=== PATIENT | female | born 1940 | race African-American/Black ===

== ENCOUNTER 2023-06-21 11:56 | Inpatient (IN) | payer OTHER ==
[2023-06-21 12:53] LABS: BASO % 0.2 % (0-2.0); EOS % 1.1 % (0-4.5); HEMATOCRIT 19.3 % (32.4-45.2); LYMPH % 6.5 % (8-40); MCH 28.3 pg (25.7-33.7); MCHC 32.5 g/dl (32.0-36.0); MEAN PLT VOLUME 8.9 fl (7.5-11.1); MONO % 9.5 % (3.8-10.2); NEUT % 82.7 % (42.8-82.8); PLATELET COUNT 222 10^3/uL (134-434); RBC 2.22 M/mm3 (3.60-5.2); RDW 17.7 % (11.6-15.6); WHITE BLOOD COUNT 11.3 K/mm3 (4.0-10.0)
[2023-06-21 12:58] LABS: HEMOGLOBIN 6.3 GM/dL (10.7-15.3)
[2023-06-21 13:01] LABS: INR 1.16 (0.83-1.09); PROTHROMBIN TIME (PATIENT) 13.4 SEC (9.7-13.0)
[2023-06-21 13:04] LABS: ACTIVATED PTT 30.5 SECONDS (25.2-36.5)
[2023-06-21 13:12] LABS: CHLORIDE 102 mmol/L (98-107); POTASSIUM 5.2 mmol/L (3.5-5.1); SODIUM 139 mmol/L (136-145)
[2023-06-21 13:14] LABS: CALCIUM 7.7 mg/dL (8.5-10.1)
[2023-06-21 13:15] LABS: ALBUMIN 1.5 g/dl (3.4-5.0); ANION GAP 12 MMOL/L (8-16); CO2 26 mmol/L (21-32); GLUCOSE,RANDOM 130 mg/dL (74-106)
[2023-06-21 13:18] LABS: CREATININE 5.1 mg/dL (0.55-1.3); SGOT/AST 97 U/L (15-37); SGPT/ALT 81 U/L (13-61)
[2023-06-21 13:19] LABS: TOT PROT 5.5 g/dl (6.4-8.2)
[2023-06-21 13:20] LABS: BILIRUBIN,TOTAL 0.2 mg/dL (0.2-1)
[2023-06-21 13:22] LABS: ALK PHOS 127 U/L (45-117); BLOOD UREA NITROGEN 144.6 mg/dL (7-18)
[2023-06-21 14:22] LABS: MAGNESIUM 1.8 mg/dL (1.8-2.4)
[2023-06-21 14:25] LABS: PHOSPHOROUS 3.7 mg/dL (2.5-4.9)
[2023-06-21] MEDS ORDERED: FUROSEMIDE 40 MG/4 ML INJECTABLE VIAL IVPUSH ONE (15:48)
[2023-06-21] MEDS ORDERED: FUROSEMIDE 40 MG/4 ML INJECTABLE VIAL ONE (15:54)
[2023-06-21 22:29] LABS: HEMATOCRIT 22.7 % (32.4-45.2); HEMOGLOBIN 7.7 GM/dL (10.7-15.3); MCH 29.1 pg (25.7-33.7); MEAN CELL VOLUME 85.5 fl (80-96); MEAN PLT VOLUME 8.7 fl (7.5-11.1); PLATELET COUNT 194 10^3/uL (134-434); RBC 2.65 M/mm3 (3.60-5.2); RDW 16.5 % (11.6-15.6); WHITE BLOOD COUNT 10.9 K/mm3 (4.0-10.0)
[2023-06-22] MEDS: SODIUM BICARBONATE 650 MG TABLET PEG SCH ×3 (00:59→21:45)
[2023-06-22] MEDS: CARVEDILOL 3.125 MG TABLET (FP) GT SCH ×3 (00:59→21:45)
[2023-06-22] MEDS: ATORVASTATIN CA 80 MG TABLET (FP) NGT SCH ×2 (00:59→21:45)
[2023-06-22] MEDS: LEVOTHYROXINE NA 100 MCG TABLET (FP) GT SCH (06:06)
[2023-06-22] MEDS: SEVELAMER CARBONATE 800 MG TAB (FP) PO SCH ×4 (07:00→18:00)
[2023-06-22] MEDS: SODIUM ZIRCONIUM CYCLOSILICATE (LOKELMA) 5 GM PACKET PO SCH ×2 (07:00→10:08)
[2023-06-22 07:32] LABS: BASO % 0.6 % (0-2.0); EOS % 1.2 % (0-4.5); HEMATOCRIT 20.8 % (32.4-45.2); LYMPH % 9.1 % (8-40); MCHC 33.4 g/dl (32.0-36.0); MEAN CELL VOLUME 86.9 fl (80-96); MEAN PLT VOLUME 9.4 fl (7.5-11.1); MONO % 5.5 % (3.8-10.2); NEUT % 83.6 % (42.8-82.8); PLATELET COUNT 200 10^3/uL (134-434); RBC 2.39 M/mm3 (3.60-5.2); RDW 16.8 % (11.6-15.6); WHITE BLOOD COUNT 9.5 K/mm3 (4.0-10.0)
[2023-06-22 07:35] LABS: HEMOGLOBIN 6.9 GM/dL (10.7-15.3)
[2023-06-22 07:46] LABS: CHLORIDE 103 mmol/L (98-107); POTASSIUM 5.4 mmol/L (3.5-5.1)
[2023-06-22 07:51] LABS: ALBUMIN 1.3 g/dl (3.4-5.0); CALCIUM 7.4 mg/dL (8.5-10.1); CO2 23 mmol/L (21-32); GLUCOSE,RANDOM 97 mg/dL (74-106); MAGNESIUM 1.8 mg/dL (1.8-2.4)
[2023-06-22 07:54] LABS: CREATININE 5.1 mg/dL (0.55-1.3); SGOT/AST 107 U/L (15-37)
[2023-06-22 07:55] LABS: SGPT/ALT 85 U/L (13-61)
[2023-06-22 07:56] LABS: BILIRUBIN,TOTAL 0.3 mg/dL (0.2-1); TOT PROT 4.9 g/dl (6.4-8.2)
[2023-06-22 07:57] LABS: ALK PHOS 104 U/L (45-117)
[2023-06-22 08:07] LABS: ANION GAP 12 MMOL/L (8-16); BLOOD UREA NITROGEN 133.2 mg/dL (7-18); SODIUM 138 mmol/L (136-145)
[2023-06-22] MEDS ORDERED: CEFTRIAXONE IV SCH (10:00)
[2023-06-22] MEDS ORDERED: [UNRECOGNIZED DRUG - OTHER] IV SCH (10:00)
[2023-06-22] MEDS: PANTOPRAZOLE SODIUM 40 MG VIAL IVPUSH SCH ×2 (10:11→21:45)
[2023-06-22] MEDS: ZINC SULFATE 220 MG CAPSULE (FP) GT SCH (10:11)
[2023-06-22] MEDS: AMIODARONE HCL 200 MG TABLET NGT SCH (10:12)
[2023-06-22] MEDS: CEFTRIAXONE 1 GM in DEXTROSE 5%-WATER - 50 ML IVPB SCH (10:12)
[2023-06-22] MEDS: COLLAGENASE CLOSTRIDIUM HIST. 30 GRAMS TUBE TP SCH (12:40)
[2023-06-22 21:57] LABS: HEMATOCRIT 25.6 % (32.4-45.2); HEMOGLOBIN 8.7 GM/dL (10.7-15.3); MCH 28.5 pg (25.7-33.7); MCHC 34.1 g/dl (32.0-36.0); MEAN CELL VOLUME 83.8 fl (80-96); MEAN PLT VOLUME 8.7 fl (7.5-11.1); PLATELET COUNT 194 10^3/uL (134-434); RBC 3.06 M/mm3 (3.60-5.2); RDW 15.7 % (11.6-15.6); WHITE BLOOD COUNT 8.7 K/mm3 (4.0-10.0)
[2023-06-23] MEDS: LEVOTHYROXINE NA 100 MCG TABLET (FP) GT SCH (06:00)
[2023-06-23 08:11] LABS: BASO % 0.6 % (0-2.0); EOS % 2.8 % (0-4.5); HEMATOCRIT 28.2 % (32.4-45.2); HEMOGLOBIN 9.4 GM/dL (10.7-15.3); LYMPH % 10.4 % (8-40); MCH 28.5 pg (25.7-33.7); MCHC 33.2 g/dl (32.0-36.0); MEAN CELL VOLUME 85.9 fl (80-96); MEAN PLT VOLUME 9.4 fl (7.5-11.1); MONO % 8.4 % (3.8-10.2); NEUT % 77.8 % (42.8-82.8); PLATELET COUNT 221 10^3/uL (134-434); RBC 3.28 M/mm3 (3.60-5.2); RDW 16.3 % (11.6-15.6); WHITE BLOOD COUNT 8.5 K/mm3 (4.0-10.0)
[2023-06-23 08:30] LABS: CHLORIDE 102 mmol/L (98-107); POTASSIUM 5.1 mmol/L (3.5-5.1); SODIUM 138 mmol/L (136-145)
[2023-06-23 08:36] LABS: CALCIUM 7.5 mg/dL (8.5-10.1)
[2023-06-23 08:37] LABS: ALBUMIN 1.5 g/dl (3.4-5.0); ANION GAP 11 MMOL/L (8-16); CO2 24 mmol/L (21-32); GLUCOSE,RANDOM 103 mg/dL (74-106)
[2023-06-23 08:38] LABS: SGOT/AST 131 U/L (15-37); SGPT/ALT 151 U/L (13-61)
[2023-06-23 08:39] LABS: BILIRUBIN,TOTAL 0.3 mg/dL (0.2-1)
[2023-06-23 08:41] LABS: MAGNESIUM 1.9 mg/dL (1.8-2.4)
[2023-06-23 08:44] LABS: ALK PHOS 161 U/L (45-117); BLOOD UREA NITROGEN 135.5 mg/dL (7-18)
[2023-06-23] MEDS: AMIODARONE HCL 200 MG TABLET NGT SCH (08:59)
[2023-06-23] MEDS: SODIUM BICARBONATE 650 MG TABLET PEG SCH ×2 (08:59→21:08)
[2023-06-23] MEDS: PANTOPRAZOLE SODIUM 40 MG VIAL IVPUSH SCH ×2 (08:59→21:08)
[2023-06-23] MEDS: CARVEDILOL 3.125 MG TABLET (FP) GT SCH ×2 (08:59→21:08)
[2023-06-23] MEDS: ZINC SULFATE 220 MG CAPSULE (FP) GT SCH (08:59)
[2023-06-23] MEDS: QUEtiapine FUMARATE 25 MG TABLET GT SCH (09:00)
[2023-06-23] MEDS: CEFTRIAXONE 1 GM in DEXTROSE 5%-WATER - 50 ML IVPB SCH (09:00)
[2023-06-23] MEDS: SEVELAMER CARBONATE 800 MG TAB (FP) PO SCH ×2 (09:00→09:06)
[2023-06-23] MEDS: SEVELAMER CARBONATE 0.8 GM POWDER PACKET GT SCH ×2 (09:17→13:38)
[2023-06-23] MEDS: SODIUM ZIRCONIUM CYCLOSILICATE (LOKELMA) 5 GM PACKET PO SCH (11:49)
[2023-06-23] MEDS: COLLAGENASE CLOSTRIDIUM HIST. 30 GRAMS TUBE TP SCH (11:50)
[2023-06-24] MEDS: LEVOTHYROXINE NA 100 MCG TABLET (FP) GT SCH (06:06)
[2023-06-24] MEDS: SODIUM ZIRCONIUM CYCLOSILICATE (LOKELMA) 5 GM PACKET PO SCH (09:00)
[2023-06-24] MEDS: SODIUM BICARBONATE 650 MG TABLET PEG SCH ×2 (09:00→21:25)
[2023-06-24] MEDS: SEVELAMER CARBONATE 0.8 GM POWDER PACKET GT SCH ×4 (09:00→17:01)
[2023-06-24] MEDS: CEFTRIAXONE 1 GM in DEXTROSE 5%-WATER - 50 ML IVPB SCH (09:01)
[2023-06-24] MEDS: COLLAGENASE CLOSTRIDIUM HIST. 30 GRAMS TUBE TP SCH (09:01)
[2023-06-24] MEDS: CARVEDILOL 3.125 MG TABLET (FP) GT SCH ×2 (09:01→21:25)
[2023-06-24] MEDS: ZINC SULFATE 220 MG CAPSULE (FP) GT SCH (09:01)
[2023-06-24] MEDS: PANTOPRAZOLE SODIUM 40 MG VIAL IVPUSH SCH ×2 (09:01→21:25)
[2023-06-24 16:32] LABS: BASO % 0.6 % (0-2.0); EOS % 3.6 % (0-4.5); HEMATOCRIT 27.2 % (32.4-45.2); HEMOGLOBIN 9.1 GM/dL (10.7-15.3); LYMPH % 13.2 % (8-40); MCH 28.5 pg (25.7-33.7); MCHC 33.6 g/dl (32.0-36.0); MEAN PLT VOLUME 8.5 fl (7.5-11.1); MONO % 8.9 % (3.8-10.2); NEUT % 73.7 % (42.8-82.8); PLATELET COUNT 221 10^3/uL (134-434); RDW 16.5 % (11.6-15.6); WHITE BLOOD COUNT 7.3 K/mm3 (4.0-10.0)
[2023-06-24 16:38] LABS: INR 1.06 (0.83-1.09); PROTHROMBIN TIME (PATIENT) 12.3 SEC (9.7-13.0)
[2023-06-24 17:18] LABS: ALBUMIN 1.4 g/dl (3.4-5.0); ALK PHOS 156 U/L (45-117); ANION GAP 9 MMOL/L (8-16); BILIRUBIN,TOTAL 0.1 mg/dL (0.2-1); CALCIUM 7.4 mg/dL (8.5-10.1); CHLORIDE 100 mmol/L (98-107); CO2 28 mmol/L (21-32); CREATININE 4.8 mg/dL (0.55-1.3); GLUCOSE,RANDOM 113 mg/dL (74-106); POTASSIUM 4.1 mmol/L (3.5-5.1); SGOT/AST 77 U/L (15-37); SGPT/ALT 110 U/L (13-61); SODIUM 137 mmol/L (136-145)
[2023-06-25] MEDS: SEVELAMER CARBONATE 0.8 GM POWDER PACKET GT SCH ×3 (09:30→17:04)
[2023-06-25] MEDS: PANTOPRAZOLE SODIUM 40 MG VIAL IVPUSH SCH ×2 (10:26→21:25)
[2023-06-25] MEDS: SODIUM ZIRCONIUM CYCLOSILICATE (LOKELMA) 5 GM PACKET PO SCH (10:26)
[2023-06-25] MEDS: CARVEDILOL 3.125 MG TABLET (FP) GT SCH ×2 (10:26→21:25)
[2023-06-25] MEDS: LEVOTHYROXINE NA 100 MCG TABLET (FP) GT SCH (10:26)
[2023-06-25] MEDS: QUEtiapine FUMARATE 25 MG TABLET GT SCH (10:26)
[2023-06-25] MEDS: ZINC SULFATE 220 MG CAPSULE (FP) GT SCH (10:26)
[2023-06-25] MEDS: SODIUM BICARBONATE 650 MG TABLET PEG SCH ×2 (10:26→21:25)
[2023-06-25] MEDS: CEFTRIAXONE 1 GM in DEXTROSE 5%-WATER - 50 ML IVPB SCH (10:27)
[2023-06-25] MEDS: COLLAGENASE CLOSTRIDIUM HIST. 30 GRAMS TUBE TP SCH (10:27)
[2023-06-25 12:09] LABS: HEPATITIS B SURFACE AG MATERN NON-REACTIVE (NONREACTIVE)
[2023-06-25 12:17] VITALS: BMI 28.9
[2023-06-26] MEDS: LEVOTHYROXINE NA 100 MCG TABLET (FP) GT SCH (06:26)
[2023-06-26 06:58] LABS: HEMOGLOBIN 9.9 GM/dL (10.7-15.3); MCH 28.6 pg (25.7-33.7); MEAN CELL VOLUME 86.9 fl (80-96); MEAN PLT VOLUME 9.2 fl (7.5-11.1); PLATELET COUNT 251 10^3/uL (134-434); RBC 3.45 M/mm3 (3.60-5.2); RDW 16.5 % (11.6-15.6); WHITE BLOOD COUNT 8.2 K/mm3 (4.0-10.0)
[2023-06-26 07:25] LABS: POTASSIUM 4.5 mmol/L (3.5-5.1)
[2023-06-26 07:26] LABS: CALCIUM 7.8 mg/dL (8.5-10.1)
[2023-06-26 07:27] LABS: ALBUMIN 1.6 g/dl (3.4-5.0); CO2 23 mmol/L (21-32); GLUCOSE,RANDOM 125 mg/dL (74-106); MAGNESIUM 1.8 mg/dL (1.8-2.4)
[2023-06-26 07:30] LABS: CREATININE 4.9 mg/dL (0.55-1.3); PHOSPHOROUS 3.4 mg/dL (2.5-4.9); SGOT/AST 71 U/L (15-37); SGPT/ALT 86 U/L (13-61)
[2023-06-26 07:32] LABS: TOT PROT 5.3 g/dl (6.4-8.2)
[2023-06-26 07:33] LABS: ALK PHOS 165 U/L (45-117)
[2023-06-26 07:35] LABS: ANION GAP 12 MMOL/L (8-16); BILIRUBIN,TOTAL 0.2 mg/dL (0.2-1); BLOOD UREA NITROGEN 136.6 mg/dL (7-18); CHLORIDE 102 mmol/L (98-107); SODIUM 137 mmol/L (136-145)
[2023-06-26] MEDS: AMINO ACIDS/PROTEIN HYDROLYS 30 ML LIQUID.PKT PO SCH (09:00)
[2023-06-26] MEDS: ZINC SULFATE 220 MG CAPSULE (FP) GT SCH (09:12)
[2023-06-26] MEDS: SODIUM ZIRCONIUM CYCLOSILICATE (LOKELMA) 5 GM PACKET PO SCH (09:12)
[2023-06-26] MEDS: SEVELAMER CARBONATE 0.8 GM POWDER PACKET GT SCH ×3 (09:12→17:53)
[2023-06-26] MEDS: CEFTRIAXONE 1 GM in DEXTROSE 5%-WATER - 50 ML IVPB SCH (09:12)
[2023-06-26] MEDS: CARVEDILOL 3.125 MG TABLET (FP) GT SCH ×2 (09:12→21:22)
[2023-06-26] MEDS: PANTOPRAZOLE SODIUM 40 MG VIAL IVPUSH SCH ×2 (09:13→21:22)
[2023-06-26] MEDS: SODIUM BICARBONATE 650 MG TABLET PEG SCH ×2 (09:13→21:22)
[2023-06-26] MEDS: COLLAGENASE CLOSTRIDIUM HIST. 30 GRAMS TUBE TP SCH (09:14)
[2023-06-26 09:33] LABS: EPI CELLS 15 /uL (0-25.1); HYALINE CASTS 0 /uL (0-3.1); URINE APPEARANCE CLEAR; URINE BACTERIA 1828 /uL (0-1359); URINE BILIRUBIN NEGATIVE (NEGATIVE); URINE COLOR YELLOW; URINE GLUCOSE (UA) NEGATIVE (NEGATIVE); URINE KETONE NEGATIVE (NEGATIVE); URINE LEUK ESTERASE 2+ (NEGATIVE); URINE NITRITE NEGATIVE (NEGATIVE); URINE PROTEIN 1+ (NEGATIVE); URINE RBC 18 /uL (0-23.9); URINE UROBILINOGEN 0.2 mg/dL (0.2-1.0); URINE WBC 507 /uL (0-25.8)
[2023-06-26 10:03] LABS: YEAST MANY (NEGATIVE)
[2023-06-26 21:06] LABS: GLIADIN ANTIBODY IGA 7 units (0-19); GLIADIN ANTIBODY IGG 2 units (0-19); TRANSGLUTAMINASE IGG < 2 U/mL (0-5)
[2023-06-27] MEDS: LEVOTHYROXINE NA 100 MCG TABLET (FP) GT SCH (06:13)
[2023-06-27] MEDS: CEFTRIAXONE 1 GM in DEXTROSE 5%-WATER - 50 ML IVPB SCH (09:05)
[2023-06-27] MEDS: SEVELAMER CARBONATE 0.8 GM POWDER PACKET GT SCH ×3 (09:06→17:16)
[2023-06-27] MEDS: ZINC SULFATE 220 MG CAPSULE (FP) GT SCH (09:06)
[2023-06-27] MEDS: PANTOPRAZOLE SODIUM 40 MG VIAL IVPUSH SCH ×2 (09:06→21:53)
[2023-06-27] MEDS: SODIUM ZIRCONIUM CYCLOSILICATE (LOKELMA) 5 GM PACKET PO SCH (09:06)
[2023-06-27] MEDS: AMINO ACIDS/PROTEIN HYDROLYS 30 ML LIQUID.PKT PO SCH (09:06)
[2023-06-27] MEDS: QUEtiapine FUMARATE 25 MG TABLET GT SCH (09:06)
[2023-06-27] MEDS: SODIUM BICARBONATE 650 MG TABLET PEG SCH ×2 (09:06→21:53)
[2023-06-27] MEDS: CARVEDILOL 3.125 MG TABLET (FP) GT SCH ×2 (09:06→21:54)
[2023-06-27] MEDS: COLLAGENASE CLOSTRIDIUM HIST. 30 GRAMS TUBE TP SCH (09:07)
[2023-06-27 12:02] LABS: BASO % 0.8 % (0-2.0); HEMATOCRIT 27.3 % (32.4-45.2); HEMOGLOBIN 9.2 GM/dL (10.7-15.3); LYMPH % 14.9 % (8-40); MCH 28.6 pg (25.7-33.7); MCHC 33.5 g/dl (32.0-36.0); MEAN CELL VOLUME 85.2 fl (80-96); MEAN PLT VOLUME 8.5 fl (7.5-11.1); MONO % 10.2 % (3.8-10.2); NEUT % 71.1 % (42.8-82.8); PLATELET COUNT 230 10^3/uL (134-434); RDW 16.4 % (11.6-15.6); WHITE BLOOD COUNT 5.9 K/mm3 (4.0-10.0)
[2023-06-27 12:27] LABS: CHLORIDE 101 mmol/L (98-107); POTASSIUM 3.7 mmol/L (3.5-5.1); SODIUM 136 mmol/L (136-145)
[2023-06-27 12:31] LABS: CALCIUM 7.7 mg/dL (8.5-10.1)
[2023-06-27 12:32] LABS: ALBUMIN 1.5 g/dl (3.4-5.0); ANION GAP 10 MMOL/L (8-16); CO2 25 mmol/L (21-32); GLUCOSE,RANDOM 125 mg/dL (74-106); MAGNESIUM 1.9 mg/dL (1.8-2.4)
[2023-06-27 12:35] LABS: CREATININE 4.6 mg/dL (0.55-1.3); SGOT/AST 53 U/L (15-37); SGPT/ALT 74 U/L (13-61)
[2023-06-27 12:37] LABS: BILIRUBIN,TOTAL 0.2 mg/dL (0.2-1); TOT PROT 4.9 g/dl (6.4-8.2)
[2023-06-27 12:38] LABS: ALK PHOS 140 U/L (45-117)
[2023-06-27 12:39] LABS: BLOOD UREA NITROGEN 133.6 mg/dL (7-18)
[2023-06-28] MEDS: LEVOTHYROXINE NA 100 MCG TABLET (FP) GT SCH (06:31)
[2023-06-28] MEDS: oxyCODONE HCL 5 MG TABLET PEG PRN ×2 (06:31→15:07)
[2023-06-28 07:52] LABS: BASO % 0.7 % (0-2.0); EOS % 1.6 % (0-4.5); HEMATOCRIT 25.7 % (32.4-45.2); HEMOGLOBIN 8.4 GM/dL (10.7-15.3); LYMPH % 12.5 % (8-40); MCH 28.5 pg (25.7-33.7); MCHC 32.7 g/dl (32.0-36.0); MEAN CELL VOLUME 87.4 fl (80-96); MEAN PLT VOLUME 9.2 fl (7.5-11.1); MONO % 9.4 % (3.8-10.2); NEUT % 75.8 % (42.8-82.8); PLATELET COUNT 214 10^3/uL (134-434); RBC 2.94 M/mm3 (3.60-5.2); RDW 16.2 % (11.6-15.6); WHITE BLOOD COUNT 7.2 K/mm3 (4.0-10.0)
[2023-06-28 08:05] LABS: CHLORIDE 101 mmol/L (98-107); POTASSIUM 3.7 mmol/L (3.5-5.1); SODIUM 136 mmol/L (136-145)
[2023-06-28 08:10] LABS: CALCIUM 7.7 mg/dL (8.5-10.1)
[2023-06-28 08:11] LABS: ALBUMIN 1.4 g/dl (3.4-5.0); ANION GAP 11 MMOL/L (8-16); CO2 25 mmol/L (21-32); GLUCOSE,RANDOM 88 mg/dL (74-106); MAGNESIUM 1.9 mg/dL (1.8-2.4)
[2023-06-28 08:14] LABS: CREATININE 4.7 mg/dL (0.55-1.3); PHOSPHOROUS 3.4 mg/dL (2.5-4.9); SGPT/ALT 60 U/L (13-61)
[2023-06-28 08:16] LABS: TOT PROT 4.6 g/dl (6.4-8.2)
[2023-06-28 08:25] LABS: SGOT/AST 50 U/L (15-37)
[2023-06-28 08:28] LABS: ALK PHOS 105 U/L (45-117); BILIRUBIN,TOTAL 0.3 mg/dL (0.2-1); BLOOD UREA NITROGEN 136.1 mg/dL (7-18)
[2023-06-28] MEDS: SODIUM ZIRCONIUM CYCLOSILICATE (LOKELMA) 5 GM PACKET PO SCH (10:00)
[2023-06-28] MEDS: CEFTRIAXONE 1 GM in DEXTROSE 5%-WATER - 50 ML IVPB SCH (11:04)
[2023-06-28] MEDS: AMINO ACIDS/PROTEIN HYDROLYS 30 ML LIQUID.PKT PO SCH (11:04)
[2023-06-28] MEDS: COLLAGENASE CLOSTRIDIUM HIST. 30 GRAMS TUBE TP SCH (11:04)
[2023-06-28] MEDS: SEVELAMER CARBONATE 0.8 GM POWDER PACKET GT SCH ×3 (11:05→18:12)
[2023-06-28] MEDS: PANTOPRAZOLE SODIUM 40 MG VIAL IVPUSH SCH ×2 (11:05→21:41)
[2023-06-28] MEDS: CARVEDILOL 3.125 MG TABLET (FP) GT SCH ×2 (11:05→21:41)
[2023-06-28] MEDS: SODIUM BICARBONATE 650 MG TABLET PEG SCH ×2 (11:05→21:41)
[2023-06-28] MEDS: ZINC SULFATE 220 MG CAPSULE (FP) GT SCH (11:05)
[2023-06-29] MEDS: LEVOTHYROXINE NA 100 MCG TABLET (FP) GT SCH (06:10)
[2023-06-29] MEDS: CEFTRIAXONE 1 GM in DEXTROSE 5%-WATER - 50 ML IVPB SCH (10:47)
[2023-06-29] MEDS: PANTOPRAZOLE SODIUM 40 MG VIAL IVPUSH SCH ×2 (10:47→21:02)
[2023-06-29] MEDS: ZINC SULFATE 220 MG CAPSULE (FP) GT SCH (10:48)
[2023-06-29] MEDS: CARVEDILOL 3.125 MG TABLET (FP) GT SCH ×2 (10:48→21:02)
[2023-06-29] MEDS: SODIUM ZIRCONIUM CYCLOSILICATE (LOKELMA) 5 GM PACKET PO SCH (10:48)
[2023-06-29] MEDS: SODIUM BICARBONATE 650 MG TABLET PEG SCH ×2 (10:48→21:02)
[2023-06-29] MEDS: QUEtiapine FUMARATE 25 MG TABLET GT SCH (10:48)
[2023-06-29] MEDS: AMINO ACIDS/PROTEIN HYDROLYS 30 ML LIQUID.PKT PO SCH (10:48)
[2023-06-29] MEDS: COLLAGENASE CLOSTRIDIUM HIST. 30 GRAMS TUBE TP SCH (10:49)
[2023-06-29] MEDS: SEVELAMER CARBONATE 0.8 GM POWDER PACKET GT SCH ×3 (10:50→16:59)
[2023-06-29] MEDS: oxyCODONE HCL 5 MG TABLET PEG PRN (21:02)
[2023-06-30] MEDS: LEVOTHYROXINE NA 100 MCG TABLET (FP) GT SCH (06:21)
[2023-06-30 07:29] LABS: HEMATOCRIT 25.7 % (32.4-45.2); HEMOGLOBIN 8.4 GM/dL (10.7-15.3); MCH 28.7 pg (25.7-33.7); MCHC 32.8 g/dl (32.0-36.0); MEAN CELL VOLUME 87.6 fl (80-96); MEAN PLT VOLUME 9.1 fl (7.5-11.1); PLATELET COUNT 249 10^3/uL (134-434); RBC 2.94 M/mm3 (3.60-5.2); RDW 16.4 % (11.6-15.6); WHITE BLOOD COUNT 7.9 K/mm3 (4.0-10.0)
[2023-06-30 07:37] LABS: CHLORIDE 98 mmol/L (98-107); POTASSIUM 3.9 mmol/L (3.5-5.1); SODIUM 135 mmol/L (136-145)
[2023-06-30 07:38] LABS: CALCIUM 7.9 mg/dL (8.5-10.1)
[2023-06-30 07:39] LABS: ANION GAP 10 MMOL/L (8-16); CO2 27 mmol/L (21-32); GLUCOSE,RANDOM 108 mg/dL (74-106); MAGNESIUM 1.8 mg/dL (1.8-2.4)
[2023-06-30 07:42] LABS: CREATININE 4.6 mg/dL (0.55-1.3)
[2023-06-30 07:51] LABS: BLOOD UREA NITROGEN 137.2 mg/dL (7-18)
[2023-06-30 08:34] LABS: ANISOCYTOSIS 0; HELMET CELLS 0; HOWELL-JOLLY BODIES 0; MACROCYTOSIS 0; OVALOCYTE 0; ROULEAU 0; SICKELED CELLS 0; TARGET CELLS 0; TEAR DROP CELLS 0; TOXIC GRANULATION 0
[2023-06-30] MEDS ORDERED: ALBUTEROL SO4 0.083% IH SOL 2.5 MG/3 ML VIAL.NEB. NEB PRN (09:12)
[2023-06-30] MEDS: oxyCODONE HCL 5 MG TABLET PEG PRN (10:04)
[2023-06-30] MEDS: SEVELAMER CARBONATE 0.8 GM POWDER PACKET GT SCH ×3 (10:04→16:56)
[2023-06-30] MEDS: CARVEDILOL 3.125 MG TABLET (FP) GT SCH ×2 (10:04→21:17)
[2023-06-30] MEDS: PANTOPRAZOLE SODIUM 40 MG VIAL IVPUSH SCH ×2 (10:04→21:17)
[2023-06-30] MEDS: CEFTRIAXONE 1 GM in DEXTROSE 5%-WATER - 50 ML IVPB SCH (10:04)
[2023-06-30] MEDS: ZINC SULFATE 220 MG CAPSULE (FP) GT SCH (10:04)
[2023-06-30] MEDS: AMINO ACIDS/PROTEIN HYDROLYS 30 ML LIQUID.PKT PO SCH (10:04)
[2023-06-30] MEDS: SODIUM ZIRCONIUM CYCLOSILICATE (LOKELMA) 5 GM PACKET PO SCH (10:04)
[2023-06-30] MEDS: COLLAGENASE CLOSTRIDIUM HIST. 30 GRAMS TUBE TP SCH (10:06)
[2023-06-30] MEDS: SODIUM BICARBONATE 650 MG TABLET PEG SCH ×2 (10:09→21:17)
[2023-06-30] MEDS: ALBUTEROL SO4 2.5/IPRATROPIUM 0.5 INH SOL 3 ML VIAL.NEB. NEB SCH (20:19)
[2023-07-01] MEDS: LEVOTHYROXINE NA 100 MCG TABLET (FP) GT SCH (06:00)
[2023-07-01 07:16] LABS: BASO % 0.7 % (0-2.0); EOS % 2.5 % (0-4.5); HEMATOCRIT 24.4 % (32.4-45.2); LYMPH % 14.6 % (8-40); MCH 28.7 pg (25.7-33.7); MCHC 32.9 g/dl (32.0-36.0); MEAN CELL VOLUME 87.5 fl (80-96); MONO % 8.5 % (3.8-10.2); NEUT % 73.7 % (42.8-82.8); PLATELET COUNT 250 10^3/uL (134-434); RBC 2.79 M/mm3 (3.60-5.2); RDW 16.6 % (11.6-15.6); WHITE BLOOD COUNT 7.6 K/mm3 (4.0-10.0)
[2023-07-01 07:36] LABS: CHLORIDE 99 mmol/L (98-107); SODIUM 137 mmol/L (136-145)
[2023-07-01 07:38] LABS: CALCIUM 8.1 mg/dL (8.5-10.1)
[2023-07-01 07:39] LABS: ANION GAP 11 MMOL/L (8-16); CO2 27 mmol/L (21-32); GLUCOSE,RANDOM 123 mg/dL (74-106)
[2023-07-01 07:42] LABS: CREATININE 4.5 mg/dL (0.55-1.3)
[2023-07-01 07:43] LABS: BLOOD UREA NITROGEN 147.4 mg/dL (7-18)
[2023-07-01] MEDS: ALBUTEROL SO4 2.5/IPRATROPIUM 0.5 INH SOL 3 ML VIAL.NEB. NEB SCH ×2 (08:25→20:05)
[2023-07-01 08:55] LABS: ANISOCYTOSIS 0; HELMET CELLS 0; HOWELL-JOLLY BODIES 0; MACROCYTOSIS 0; OVALOCYTE 0; ROULEAU 0; SICKELED CELLS 0; TARGET CELLS 0; TEAR DROP CELLS 0; TOXIC GRANULATION 0
[2023-07-01] MEDS: PANTOPRAZOLE SODIUM 40 MG VIAL IVPUSH SCH ×2 (10:01→21:15)
[2023-07-01] MEDS: SEVELAMER CARBONATE 0.8 GM POWDER PACKET GT SCH ×3 (10:02→18:04)
[2023-07-01] MEDS: SODIUM BICARBONATE 650 MG TABLET PEG SCH ×2 (10:02→21:15)
[2023-07-01] MEDS: CARVEDILOL 3.125 MG TABLET (FP) GT SCH ×2 (10:02→21:15)
[2023-07-01] MEDS: QUEtiapine FUMARATE 25 MG TABLET GT SCH (10:02)
[2023-07-01] MEDS: COLLAGENASE CLOSTRIDIUM HIST. 30 GRAMS TUBE TP SCH (10:02)
[2023-07-01] MEDS: SODIUM ZIRCONIUM CYCLOSILICATE (LOKELMA) 5 GM PACKET PO SCH (10:03)
[2023-07-01] MEDS: ZINC SULFATE 220 MG CAPSULE (FP) GT SCH (10:03)
[2023-07-01] MEDS: CEFTRIAXONE 1 GM in DEXTROSE 5%-WATER - 50 ML IVPB SCH (10:03)
[2023-07-01] MEDS: AMINO ACIDS/PROTEIN HYDROLYS 30 ML LIQUID.PKT PO SCH (10:03)
[2023-07-01] MEDS: POLYETHYLENE GLYCOL (HEALTHYLAX) 3350 17 GM PACKET GT SCH ×2 (10:03→21:15)
[2023-07-01] MEDS: SENNOSIDES 8.8 MG/5 ML SYRUP GT SCH (21:15)
[2023-07-02] MEDS: LEVOTHYROXINE NA 100 MCG TABLET (FP) GT SCH (07:07)
[2023-07-02] MEDS: ALBUTEROL SO4 2.5/IPRATROPIUM 0.5 INH SOL 3 ML VIAL.NEB. NEB SCH ×2 (08:27→20:05)
[2023-07-02] MEDS: PANTOPRAZOLE SODIUM 40 MG VIAL IVPUSH SCH ×2 (09:26→21:20)
[2023-07-02] MEDS: SODIUM ZIRCONIUM CYCLOSILICATE (LOKELMA) 5 GM PACKET PO SCH (09:26)
[2023-07-02] MEDS: AMINO ACIDS/PROTEIN HYDROLYS 30 ML LIQUID.PKT PO SCH (09:26)
[2023-07-02] MEDS: POLYETHYLENE GLYCOL (HEALTHYLAX) 3350 17 GM PACKET GT SCH ×2 (09:26→21:20)
[2023-07-02] MEDS: SEVELAMER CARBONATE 0.8 GM POWDER PACKET GT SCH ×3 (09:27→17:30)
[2023-07-02] MEDS: CARVEDILOL 3.125 MG TABLET (FP) GT SCH ×2 (09:29→21:20)
[2023-07-02] MEDS: SODIUM BICARBONATE 650 MG TABLET PEG SCH ×2 (09:29→21:20)
[2023-07-02] MEDS: ZINC SULFATE 220 MG CAPSULE (FP) GT SCH (09:29)
[2023-07-02] MEDS: COLLAGENASE CLOSTRIDIUM HIST. 30 GRAMS TUBE TP SCH (10:52)
[2023-07-02] MEDS: SENNOSIDES 8.8 MG/5 ML SYRUP GT SCH (21:20)
[2023-07-03] MEDS: LEVOTHYROXINE NA 100 MCG TABLET (FP) GT SCH (06:14)
[2023-07-03] MEDS: AMINO ACIDS/PROTEIN HYDROLYS 30 ML LIQUID.PKT PO SCH (09:51)
[2023-07-03] MEDS: SODIUM ZIRCONIUM CYCLOSILICATE (LOKELMA) 5 GM PACKET PO SCH (09:51)
[2023-07-03] MEDS: POLYETHYLENE GLYCOL (HEALTHYLAX) 3350 17 GM PACKET GT SCH ×2 (09:51→21:16)
[2023-07-03] MEDS: SEVELAMER CARBONATE 0.8 GM POWDER PACKET GT SCH ×3 (09:51→17:39)
[2023-07-03] MEDS: ZINC SULFATE 220 MG CAPSULE (FP) GT SCH (09:51)
[2023-07-03] MEDS: COLLAGENASE CLOSTRIDIUM HIST. 30 GRAMS TUBE TP SCH (09:52)
[2023-07-03] MEDS: QUEtiapine FUMARATE 25 MG TABLET GT SCH (09:52)
[2023-07-03] MEDS: SODIUM BICARBONATE 650 MG TABLET PEG SCH ×2 (09:52→21:16)
[2023-07-03] MEDS: PANTOPRAZOLE SODIUM 40 MG VIAL IVPUSH SCH ×2 (09:52→21:16)
[2023-07-03] MEDS: CARVEDILOL 3.125 MG TABLET (FP) GT SCH ×2 (09:52→21:16)
[2023-07-03] MEDS: ALBUTEROL SO4 2.5/IPRATROPIUM 0.5 INH SOL 3 ML VIAL.NEB. NEB SCH ×2 (09:56→20:38)
[2023-07-03] MEDS: SENNOSIDES 8.8 MG/5 ML SYRUP GT SCH (21:16)
[2023-07-04] MEDS: LEVOTHYROXINE NA 100 MCG TABLET (FP) GT SCH (06:01)
[2023-07-04 07:37] LABS: HEMATOCRIT 26.7 % (32.4-45.2); HEMOGLOBIN 8.8 GM/dL (10.7-15.3); MCHC 32.8 g/dl (32.0-36.0); MEAN CELL VOLUME 88.3 fl (80-96); MEAN PLT VOLUME 8.8 fl (7.5-11.1); PLATELET COUNT 267 10^3/uL (134-434); RBC 3.02 M/mm3 (3.60-5.2); RDW 16.9 % (11.6-15.6); WHITE BLOOD COUNT 11.9 K/mm3 (4.0-10.0)
[2023-07-04] MEDS: ALBUTEROL SO4 2.5/IPRATROPIUM 0.5 INH SOL 3 ML VIAL.NEB. NEB SCH (07:50)
[2023-07-04 07:55] LABS: CHLORIDE 100 mmol/L (98-107); POTASSIUM 4.5 mmol/L (3.5-5.1); SODIUM 138 mmol/L (136-145)
[2023-07-04 08:01] LABS: ALBUMIN 1.5 g/dl (3.4-5.0); ANION GAP 11 MMOL/L (8-16); CO2 27 mmol/L (21-32); GLUCOSE,RANDOM 83 mg/dL (74-106); MAGNESIUM 1.9 mg/dL (1.8-2.4)
[2023-07-04 08:03] LABS: CALCIUM 8.6 mg/dL (8.5-10.1); SGPT/ALT 48 U/L (13-61)
[2023-07-04 08:04] LABS: CREATININE 4.6 mg/dL (0.55-1.3); PHOSPHOROUS 2.6 mg/dL (2.5-4.9); SGOT/AST 45 U/L (15-37)
[2023-07-04 08:05] LABS: BILIRUBIN,TOTAL 0.2 mg/dL (0.2-1); TOT PROT 5.2 g/dl (6.4-8.2)
[2023-07-04 08:26] LABS: ALK PHOS 108 U/L (45-117)
[2023-07-04 08:52] LABS: BLOOD UREA NITROGEN 150.3 mg/dL (7-18)
[2023-07-04] MEDS: AMINO ACIDS/PROTEIN HYDROLYS 30 ML LIQUID.PKT PO SCH (09:21)
[2023-07-04] MEDS: COLLAGENASE CLOSTRIDIUM HIST. 30 GRAMS TUBE TP SCH (09:21)
[2023-07-04] MEDS: PANTOPRAZOLE SODIUM 40 MG VIAL IVPUSH SCH ×2 (09:21→21:18)
[2023-07-04] MEDS: POLYETHYLENE GLYCOL (HEALTHYLAX) 3350 17 GM PACKET GT SCH ×2 (09:21→21:28)
[2023-07-04] MEDS: ZINC SULFATE 220 MG CAPSULE (FP) GT SCH (09:21)
[2023-07-04] MEDS: SEVELAMER CARBONATE 0.8 GM POWDER PACKET GT SCH ×3 (09:21→18:20)
[2023-07-04] MEDS: SODIUM ZIRCONIUM CYCLOSILICATE (LOKELMA) 5 GM PACKET PO SCH (09:21)
[2023-07-04] MEDS: CARVEDILOL 3.125 MG TABLET (FP) GT SCH ×2 (09:21→21:18)
[2023-07-04] MEDS: SODIUM BICARBONATE 650 MG TABLET PEG SCH ×2 (09:22→21:18)
[2023-07-04 11:39] LABS: INR 1.16 (0.83-1.09); PROTHROMBIN TIME (PATIENT) 13.4 SEC (9.7-13.0)
[2023-07-04] MEDS ORDERED: hydrOXYzine HCL 10 MG/5 ML LIQUID BULK BOTTLE GT PRN (17:32)
[2023-07-04] MEDS: SENNOSIDES 8.8 MG/5 ML SYRUP GT SCH (21:18)
[2023-07-05] MEDS: LEVOTHYROXINE NA 100 MCG TABLET (FP) GT SCH (06:13)
[2023-07-05 07:12] LABS: BASO % 0.8 % (0-2.0); EOS % 1.7 % (0-4.5); HEMATOCRIT 23.5 % (32.4-45.2); HEMOGLOBIN 7.8 GM/dL (10.7-15.3); LYMPH % 7.3 % (8-40); MCH 28.7 pg (25.7-33.7); MCHC 33.2 g/dl (32.0-36.0); MEAN CELL VOLUME 86.5 fl (80-96); MONO % 6.5 % (3.8-10.2); NEUT % 83.7 % (42.8-82.8); PLATELET COUNT 242 10^3/uL (134-434); RBC 2.71 M/mm3 (3.60-5.2); RDW 16.9 % (11.6-15.6); WHITE BLOOD COUNT 10.8 K/mm3 (4.0-10.0)
[2023-07-05 07:19] LABS: CHLORIDE 100 mmol/L (98-107); SODIUM 139 mmol/L (136-145)
[2023-07-05 07:20] LABS: ALBUMIN 1.6 g/dl (3.4-5.0); ANION GAP 11 MMOL/L (8-16); CALCIUM 8.5 mg/dL (8.5-10.1); CO2 28 mmol/L (21-32); GLUCOSE,RANDOM 110 mg/dL (74-106); MAGNESIUM 2.1 mg/dL (1.8-2.4)
[2023-07-05 07:21] LABS: INR 1.12 (0.83-1.09)
[2023-07-05 07:24] LABS: CREATININE 4.6 mg/dL (0.55-1.3); PHOSPHOROUS 2.7 mg/dL (2.5-4.9); SGOT/AST 37 U/L (15-37); SGPT/ALT 44 U/L (13-61)
[2023-07-05 07:26] LABS: ALK PHOS 112 U/L (45-117); BILIRUBIN,TOTAL 0.2 mg/dL (0.2-1); TOT PROT 5.1 g/dl (6.4-8.2)
[2023-07-05 07:44] LABS: BLOOD UREA NITROGEN 143.7 mg/dL (7-18)
[2023-07-05] MEDS: ZINC SULFATE 220 MG CAPSULE (FP) GT SCH (09:01)
[2023-07-05] MEDS: SODIUM BICARBONATE 650 MG TABLET PEG SCH ×2 (09:01→22:21)
[2023-07-05] MEDS: QUEtiapine FUMARATE 25 MG TABLET GT SCH (09:01)
[2023-07-05] MEDS: SEVELAMER CARBONATE 0.8 GM POWDER PACKET GT SCH ×3 (09:02→18:05)
[2023-07-05] MEDS: PANTOPRAZOLE SODIUM 40 MG VIAL IVPUSH SCH ×2 (09:02→22:21)
[2023-07-05] MEDS: SODIUM ZIRCONIUM CYCLOSILICATE (LOKELMA) 5 GM PACKET PO SCH (09:02)
[2023-07-05] MEDS: COLLAGENASE CLOSTRIDIUM HIST. 30 GRAMS TUBE TP SCH (09:02)
[2023-07-05] MEDS: POLYETHYLENE GLYCOL (HEALTHYLAX) 3350 17 GM PACKET GT SCH ×2 (09:03→22:21)
[2023-07-05] MEDS: CARVEDILOL 3.125 MG TABLET (FP) GT SCH ×2 (09:04→22:21)
[2023-07-05] MEDS: AMINO ACIDS/PROTEIN HYDROLYS 30 ML LIQUID.PKT PO SCH (09:13)
[2023-07-05] MEDS: SENNOSIDES 8.8 MG/5 ML SYRUP GT SCH (22:21)
[2023-07-06] MEDS: LEVOTHYROXINE NA 100 MCG TABLET (FP) GT SCH (06:03)
[2023-07-06] MEDS: SEVELAMER CARBONATE 0.8 GM POWDER PACKET GT SCH ×3 (10:31→17:49)
[2023-07-06] MEDS: SODIUM BICARBONATE 650 MG TABLET PEG SCH ×2 (10:31→23:33)
[2023-07-06] MEDS: SODIUM ZIRCONIUM CYCLOSILICATE (LOKELMA) 5 GM PACKET PO SCH (10:32)
[2023-07-06] MEDS: AMINO ACIDS/PROTEIN HYDROLYS 30 ML LIQUID.PKT PO SCH (10:32)
[2023-07-06] MEDS: PANTOPRAZOLE SODIUM 40 MG VIAL IVPUSH SCH ×2 (10:32→23:33)
[2023-07-06] MEDS: CARVEDILOL 3.125 MG TABLET (FP) GT SCH ×2 (10:34→23:33)
[2023-07-06] MEDS: POLYETHYLENE GLYCOL (HEALTHYLAX) 3350 17 GM PACKET GT SCH ×2 (10:34→23:33)
[2023-07-06 11:29] LABS: HEMATOCRIT 22.3 % (32.4-45.2); HEMOGLOBIN 7.3 GM/dL (10.7-15.3); MCH 28.1 pg (25.7-33.7); MCHC 32.6 g/dl (32.0-36.0); MEAN CELL VOLUME 86.2 fl (80-96); MEAN PLT VOLUME 8.2 fl (7.5-11.1); PLATELET COUNT 237 10^3/uL (134-434); RBC 2.58 M/mm3 (3.60-5.2); RDW 16.8 % (11.6-15.6); WHITE BLOOD COUNT 9.6 K/mm3 (4.0-10.0)
[2023-07-06 11:52] LABS: CHLORIDE 99 mmol/L (98-107); POTASSIUM 3.8 mmol/L (3.5-5.1); SODIUM 138 mmol/L (136-145)
[2023-07-06 11:55] LABS: ALBUMIN 1.7 g/dl (3.4-5.0); ANION GAP 10 MMOL/L (8-16); CALCIUM 8.6 mg/dL (8.5-10.1); CO2 29 mmol/L (21-32); GLUCOSE,RANDOM 142 mg/dL (74-106); MAGNESIUM 2.2 mg/dL (1.8-2.4)
[2023-07-06 11:59] LABS: CREATININE 4.6 mg/dL (0.55-1.3); PHOSPHOROUS 2.6 mg/dL (2.5-4.9); SGOT/AST 36 U/L (15-37); SGPT/ALT 45 U/L (13-61); TOT PROT 5.5 g/dl (6.4-8.2)
[2023-07-06 12:01] LABS: ALK PHOS 115 U/L (45-117); BILIRUBIN,TOTAL 0.2 mg/dL (0.2-1)
[2023-07-06 12:07] LABS: BLOOD UREA NITROGEN 145.7 mg/dL (7-18)
[2023-07-06] MEDS: ZINC SULFATE 220 MG CAPSULE (FP) GT SCH (13:09)
[2023-07-06] MEDS: COLLAGENASE CLOSTRIDIUM HIST. 30 GRAMS TUBE TP SCH (15:58)
[2023-07-06] MEDS: ALBUTEROL SO4 2.5/IPRATROPIUM 0.5 INH SOL 3 ML VIAL.NEB. NEB PRN (20:40)
[2023-07-06] MEDS: SENNOSIDES 8.8 MG/5 ML SYRUP GT SCH (23:33)
[2023-07-07] MEDS: LEVOTHYROXINE NA 100 MCG TABLET (FP) GT SCH (06:51)
[2023-07-07] MEDS ORDERED: QUEtiapine FUMARATE 25 MG TABLET GT SCH (10:00)
[2023-07-07] MEDS: CARVEDILOL 3.125 MG TABLET (FP) GT SCH ×2 (10:47→22:22)
[2023-07-07] MEDS: SODIUM BICARBONATE 650 MG TABLET PEG SCH ×2 (10:47→22:23)
[2023-07-07] MEDS: SODIUM ZIRCONIUM CYCLOSILICATE (LOKELMA) 5 GM PACKET PO SCH (10:49)
[2023-07-07] MEDS: ZINC SULFATE 220 MG CAPSULE (FP) GT SCH (10:50)
[2023-07-07] MEDS: AMINO ACIDS/PROTEIN HYDROLYS 30 ML LIQUID.PKT PO SCH (10:50)
[2023-07-07] MEDS: SEVELAMER CARBONATE 0.8 GM POWDER PACKET GT SCH ×3 (10:51→18:05)
[2023-07-07] MEDS: POLYETHYLENE GLYCOL (HEALTHYLAX) 3350 17 GM PACKET GT SCH ×2 (10:51→22:22)
[2023-07-07 11:57] LABS: HEMATOCRIT 22.3 % (32.4-45.2); HEMOGLOBIN 7.3 GM/dL (10.7-15.3); MCHC 32.5 g/dl (32.0-36.0); MEAN CELL VOLUME 86.2 fl (80-96); PLATELET COUNT 242 10^3/uL (134-434); RBC 2.59 M/mm3 (3.60-5.2); RDW 16.7 % (11.6-15.6); WHITE BLOOD COUNT 8.7 K/mm3 (4.0-10.0)
[2023-07-07] MEDS: PANTOPRAZOLE SODIUM 40 MG VIAL IVPUSH SCH ×2 (11:59→22:22)
[2023-07-07 12:18] LABS: CHLORIDE 99 mmol/L (98-107); POTASSIUM 3.9 mmol/L (3.5-5.1); SODIUM 137 mmol/L (136-145)
[2023-07-07 12:23] LABS: ANION GAP 9 MMOL/L (8-16); CALCIUM 8.7 mg/dL (8.5-10.1); CO2 29 mmol/L (21-32); GLUCOSE,RANDOM 103 mg/dL (74-106)
[2023-07-07 12:27] LABS: CREATININE 4.7 mg/dL (0.55-1.3)
[2023-07-07 12:43] LABS: BLOOD UREA NITROGEN 155.2 mg/dL (7-18)
[2023-07-07] MEDS: COLLAGENASE CLOSTRIDIUM HIST. 30 GRAMS TUBE TP SCH (18:43)
[2023-07-07] MEDS: SENNOSIDES 8.8 MG/5 ML SYRUP GT SCH (22:22)
[2023-07-08] MEDS: LEVOTHYROXINE NA 100 MCG TABLET (FP) GT SCH (06:08)
[2023-07-08] MEDS: ALBUTEROL SO4 2.5/IPRATROPIUM 0.5 INH SOL 3 ML VIAL.NEB. NEB PRN (08:18)
[2023-07-08] MEDS ORDERED: PANTOPRAZOLE 40 MG TABLET PO SCH (10:00)
[2023-07-08] MEDS: SEVELAMER CARBONATE 0.8 GM POWDER PACKET GT SCH ×3 (10:59→18:07)
[2023-07-08] MEDS: COLLAGENASE CLOSTRIDIUM HIST. 30 GRAMS TUBE TP SCH (10:59)
[2023-07-08] MEDS: AMINO ACIDS/PROTEIN HYDROLYS 30 ML LIQUID.PKT PO SCH (10:59)
[2023-07-08] MEDS: SODIUM ZIRCONIUM CYCLOSILICATE (LOKELMA) 5 GM PACKET PO SCH (10:59)
[2023-07-08] MEDS: SODIUM BICARBONATE 650 MG TABLET PEG SCH (11:00)
[2023-07-08] MEDS: ZINC SULFATE 220 MG CAPSULE (FP) GT SCH (11:00)
[2023-07-08] MEDS: CARVEDILOL 3.125 MG TABLET (FP) GT SCH ×2 (11:00→11:28)
[2023-07-08] MEDS: POLYETHYLENE GLYCOL (HEALTHYLAX) 3350 17 GM PACKET GT SCH (11:26)
[2023-07-08 12:46] LABS: BASO % 0.5 % (0-2.0); EOS % 1.8 % (0-4.5); HEMOGLOBIN 7.4 GM/dL (10.7-15.3); LYMPH % 7.3 % (8-40); MCH 29.3 pg (25.7-33.7); MCHC 33.4 g/dl (32.0-36.0); MEAN CELL VOLUME 87.7 fl (80-96); MONO % 6.5 % (3.8-10.2); NEUT % 83.9 % (42.8-82.8); PLATELET COUNT 218 10^3/uL (134-434); RBC 2.51 M/mm3 (3.60-5.2); RDW 17.2 % (11.6-15.6); WHITE BLOOD COUNT 10.2 K/mm3 (4.0-10.0)
[2023-07-08 16:34] LABS: ALBUMIN 1.6 g/dl (3.4-5.0); ALK PHOS 108 U/L (45-117); ANION GAP 10 MMOL/L (8-16); BILIRUBIN,TOTAL 0.2 mg/dL (0.2-1); BLOOD UREA NITROGEN 149.8 mg/dL (7-18); CALCIUM 8.4 mg/dL (8.5-10.1); CHLORIDE 96 mmol/L (98-107); CO2 30 mmol/L (21-32); CREATININE 4.7 mg/dL (0.55-1.3); GLUCOSE,RANDOM 120 mg/dL (74-106); POTASSIUM 3.9 mmol/L (3.5-5.1); SGOT/AST 39 U/L (15-37); SGPT/ALT 40 U/L (13-61); SODIUM 136 mmol/L (136-145); TOT PROT 5.1 g/dl (6.4-8.2)
[2023-07-08 19:12] VITALS: BP 105/36; PULSE 69; RESP 14; TEMP 97.4
== END 2023-07-08 19:44 | DRG 698 ==
LOC: JER 11:56 → JERBED 15:14 → J2W 22:57 → J5S 07-05 21:08
PROVIDERS: ADMIT Internal Medicine; ATTEND Internal Medicine
PROC: 5A1955Z Respiratory Ventilation, Greater than 96 Consecutive Hours (ICD-10-PCS; principal; 2023-06-21)
PROC: 30233N1 Transfusion of Nonautologous Red Blood Cells into Peripheral Vein, Percutaneous Approach (ICD-10-PCS; 2023-06-21)
DX: N32.89 Other specified disorders of bladder (principal); J18.9 Pneumonia, unspecified organism; J96.21 Acute and chronic respiratory failure with hypoxia; T80.211A Bloodstream infection due to central venous catheter, initial encounter; D62 Acute posthemorrhagic anemia; I13.0 Hypertensive heart and chronic kidney disease with heart failure and stage 1 through stage 4 chronic kidney disease, or unspecified chronic kidney disease; G81.91 Hemiplegia, unspecified affecting right dominant side; L89.150 Pressure ulcer of sacral region, unstageable; E87.5 Hyperkalemia; N18.9 Chronic kidney disease, unspecified; I73.9 Peripheral vascular disease, unspecified; E03.9 Hypothyroidism, unspecified; Z93.0 Tracheostomy status; Y83.9 Surgical procedure, unspecified as the cause of abnormal reaction of the patient, or of later complication, without mention of misadventure at the time of the procedure; I50.9 Heart failure, unspecified; E78.5 Hyperlipidemia, unspecified
CPT/HCPCS: 36415; 36430; 71045-TC-FY; 74176-TC; 76700-TC; 76775-TC; 76856-TC; 80048; 80053; 81003; 82272; 82550; 82553; 82728; 82784; 82977; 83516; 83540; 83550; 83735; 84100; 84484; 85025; 85027; 85045; 85610; 85730; 86038; 86704; 86708; 86709; 86803; 86850; 86900; 86901; 86922; 87040; 87070; 87186; 87340; 87517; 87635; 93005; 93010; 93306-TC; 93971; 94002; 94640; 99291; P9058